=== PATIENT | male | born 1960 | race Caucasian/White ===

== ENCOUNTER 2017-08-31 15:43 | Inpatient (IN) | payer MEDICARE, MEDICAID ==
[~2017-08-31] VITALS: Ht 162.6 cm; Wt 80.3 kg
[2017-08-31] MEDS ORDERED: ABAC1TAB15 PO (16:18)
[2017-08-31] MEDS ORDERED: AMOXICILLIN PO (16:18)
[2017-08-31] MEDS ORDERED: IV NORMAL SALINE 1000 ML BAG IV ONE (19:15)
[2017-08-31] MEDS ORDERED: HYDROMORPHONE 1 MG/1 ML DISP.SYRIN IV ONE (19:15)
[2017-08-31] MEDS ORDERED: ONDANSETRON 4 MG/2 ML VIAL IV ONE (19:15)
[2017-08-31 19:51] LABS: BASOPHILS % (AUTO) 0.9 % (0.0-2.0); EOSINOPHILS # (AUTO) 0.1 K/uL (0.0-0.7); EOSINOPHILS % (AUTO) 2.2 % (0.0-7.0); HEMATOCRIT 46.5 % (36.7-47.1); HEMOGLOBIN 15.5 g/dL (12.5-16.3); LYMPHOCYTES # (AUTO) 0.7 K/uL (20.0-40.0); MEAN CORPUSCULAR HEMOGLOBIN 29.1 uug (23.8-33.4); MEAN CORPUSCULAR HGB CONC 33 g/dL (32.5-36.3); MEAN CORPUSCULAR VOLUME 87.1 fL (73.0-96.2); MONOCYTES # (AUTO) 0.4 K/uL (2.0-10.0); NEUTROPHILS # (AUTO) 3.5 K/uL (1.8-8.9); NEUTROPHILS % (AUTO) 72.9 % (38.5-71.5); PLATELET COUNT (AUTO) 51 K/uL (152-348); RED BLOOD CELL COUNT(AUTO) 5.33 MIL/uL (4.06-5.63); WHITE BLOOD COUNT (AUTO) 4.8 K/uL (3.6-10.2)
[2017-08-31 19:52] LABS: CREATININE 1.5 mg/dL (0.6-1.3); POTASSIUM 4.1 mmol/L (3.5-5.1)
[2017-08-31 20:02] LABS: BILIRUBIN,DIRECT 0.3 mg/dL (0.0-0.2); TOTAL PROTEIN, SERUM 8.3 g/dL (6.4-8.2)
[2017-08-31] MEDS ORDERED: HYDROMORPHONE 2 MG/1 ML DISP.SYRIN ONE (20:03)
[2017-08-31] MEDS ORDERED: ONDANSETRON 4 MG/2 ML VIAL ONE (20:03)
[2017-08-31 20:10] LABS: BAND % (MANUAL) 2 % (0-10); EOSINOPHILS % (MANUAL) 2 % (0-8); LYMPHOCYTES % (MANUAL) 14 % (20-40); MONOCYTES % (MANUAL) 7 % (2-10); NEUTROPHILS % (MANUAL) 75 % (42-75)
--- NOTE | 2017-08-31 22:02 | NUR ---
Pt. admitted to [facility], under care of Jody Roman (TONI) Belongs List completed
--- NOTE | 2017-08-31 22:30 | NUR ---
Received patient from the ER via [facility]. Patient belongings noted, denies pain at this time. Vital signs WNL. Admission assessments completed. paged the doctor for admission orders. Patient currently lying in bed, oriented to the unit. No distress noted, bed in low position with call light within reach.
[2017-08-31 22:34] VITALS: BP 131/74
[2017-08-31] MEDS ORDERED: Z GUARD REMEDY PASTE 57 GM TUBE TOP PRN (23:00)
[2017-08-31] MEDS ORDERED: HYDROCODONE/APAP 5-325MG TABLET PO PRN (23:00)
[2017-08-31] MEDS ORDERED: MAGNESIUM HYDROXIDE 30 ML LIQUID UDC PO PRN (23:00)
[2017-08-31] MEDS ORDERED: MORPHINE SULFATE 2 MG/1 ML DISP.SYRIN IV PRN (23:00)
[2017-08-31] MEDS ORDERED: ZOLPIDEM 5 MG TABLET PO PRN (23:00)
[2017-08-31] MEDS ORDERED: ONDANSETRON 4 MG/2 ML VIAL IV PRN (23:00)
[2017-08-31] MEDS ORDERED: IV NS 1000 ML 1,000 ML IV PRN (23:00)
[2017-08-31] MEDS ORDERED: ACETAMINOPHEN 325 MG TABLET PO PRN (23:00)
[2017-08-31] MEDS: HEPARIN SODIUM,PORCINE 5,000 UNITS/ML VIAL SQ SCH (23:12)
[2017-08-31] MEDS ORDERED: HEPARIN SODIUM,PORCINE 5,000 UNITS/ML VIAL ONE (23:26)
[2017-09-01 04:00] VITALS: BP 110/79
[2017-09-01 08:11] LABS: BASOPHILS % (AUTO) 1.1 % (0.0-2.0); EOSINOPHILS # (AUTO) 0.1 K/uL (0.0-0.7); EOSINOPHILS % (AUTO) 3.4 % (0.0-7.0); HEMATOCRIT 40.1 % (36.7-47.1); HEMOGLOBIN 13.4 g/dL (12.5-16.3); LYMPHOCYTES # (AUTO) 0.8 K/uL (20.0-40.0); LYMPHOCYTES % (AUTO) 21.1 % (20.5-51.5); MEAN CORPUSCULAR HGB CONC 33 g/dL (32.5-36.3); MEAN CORPUSCULAR VOLUME 86.8 fL (73.0-96.2); MONOCYTES # (AUTO) 0.4 K/uL (2.0-10.0); MONOCYTES % (AUTO) 10.6 % (0.0-11.0); NEUTROPHILS # (AUTO) 2.4 K/uL (1.8-8.9); NEUTROPHILS % (AUTO) 63.8 % (38.5-71.5); RED BLOOD CELL COUNT(AUTO) 4.63 MIL/uL (4.06-5.63); WHITE BLOOD COUNT (AUTO) 3.8 K/uL (3.6-10.2)
[2017-09-01 08:19] LABS: PLATELET COUNT (AUTO) 46 K/uL (152-348)
[2017-09-01 08:22] LABS: CREATININE 1.2 mg/dL (0.6-1.3); MAGNESIUM 1.7 mg/dL (1.8-2.4); PHOSPHOROUS 3.3 mg/dL (2.5-4.9); POTASSIUM 4.2 mmol/L (3.5-5.1)
[2017-09-01] MEDS: MORPHINE SULFATE 4 MG/1 ML DISP.SYRIN IV PRN ×3 (08:38→21:13)
[2017-09-01] MEDS: HEPARIN SODIUM,PORCINE 5,000 UNITS/ML VIAL SQ SCH (08:45)
[2017-09-01] MEDS ORDERED: MAGNESIUM SULFATE/D5W 100 ML IV SCH (10:45)
[2017-09-01] MEDS ORDERED: IV D5/ 0.9% NACL 1,000 ML IV PRN (10:45)
[2017-09-01 11:42] LABS: BILIRUBIN,DIRECT 0.2 mg/dL (0.0-0.2); BILIRUBIN,TOTAL 0.7 mg/dL (0.2-1.0); TOTAL PROTEIN, SERUM 6.8 g/dL (6.4-8.2)
[2017-09-01 11:56] LABS: BAND % (MANUAL) 2 % (0-10); BASOPHILS % (MANUAL) 1 % (0-2); EOSINOPHILS % (MANUAL) 3 % (0-8); LYMPHOCYTES % (MANUAL) 20 % (20-40); MONOCYTES % (MANUAL) 10 % (2-10); NEUTROPHILS % (MANUAL) 64 % (42-75)
[2017-09-01 12:02] VITALS: BP 114/75
[2017-09-01 12:38] LABS: THYROID STIMULATING HORMONE 2.009 mIU/mL (0.358-3.740)
[2017-09-01] MEDS: MEROPENEM 1 G in IV NORMAL SALINE 100 ML IV SCH ×2 (13:02→20:43)
[2017-09-01] MEDS: PANTOPRAZOLE SODIUM 40 MG VIAL IV SCH (15:40)
[2017-09-01] MEDS: POLYVINYL ALCOHOL OPHT DROPS 15 ML BOTTLE LEFTEYE SCH ×2 (15:41→17:10)
[2017-09-01 16:06] VITALS: BP 131/87
[2017-09-01 19:00] VITALS: BP 147/91
--- NOTE | 2017-09-01 21:00 | NUR ---
Consent for EGD signed by patient. Signed consent placed in patient's chart.
--- NOTE | 2017-09-02 | NUR ---
Patient kept NPO past midnight for EGD procedure in the morning 09/02/17. Patient verbalized understanding. IVF infusing, no infiltration noted. Will continue to monitor.
[2017-09-02] MEDS: POLYVINYL ALCOHOL OPHT DROPS 15 ML BOTTLE LEFTEYE SCH ×5 (00:09→23:23)
[2017-09-02] MEDS: MEROPENEM 1 G in IV NORMAL SALINE 100 ML IV SCH ×3 (03:36→20:10)
[2017-09-02 04:00] VITALS: BP 112/72
[2017-09-02 04:30] VITALS: BP 118/80
[2017-09-02] MEDS: MORPHINE SULFATE 4 MG/1 ML DISP.SYRIN IV PRN ×4 (05:07→23:26)
--- NOTE | 2017-09-02 05:47 | NUR ---
Pre operative checklist done. Addendum: 09/02/17 at 0653 by SPIKE TATUM RN Add: Pt is in no distress, VS stable, pt is afebrile, no s/s of bleeding.
[2017-09-02 07:09] LABS: BILIRUBIN,TOTAL 0.7 mg/dL (0.2-1.0); CREATININE 1.3 mg/dL (0.6-1.3); PHOSPHOROUS 2.9 mg/dL (2.5-4.9); POTASSIUM 3.7 mmol/L (3.5-5.1); TOTAL PROTEIN, SERUM 6.6 g/dL (6.4-8.2)
[2017-09-02 07:27] LABS: EOSINOPHILS # (AUTO) 0.3 K/uL (0.0-0.7); EOSINOPHILS % (AUTO) 6.2 % (0.0-7.0); HEMATOCRIT 41.3 % (36.7-47.1); HEMOGLOBIN 13.6 g/dL (12.5-16.3); LYMPHOCYTES # (AUTO) 0.9 K/uL (20.0-40.0); LYMPHOCYTES % (AUTO) 21.3 % (20.5-51.5); MEAN CORPUSCULAR HGB CONC 33 g/dL (32.5-36.3); MEAN CORPUSCULAR VOLUME 87.9 fL (73.0-96.2); MONOCYTES # (AUTO) 0.5 K/uL (2.0-10.0); MONOCYTES % (AUTO) 11.6 % (0.0-11.0); NEUTROPHILS # (AUTO) 2.6 K/uL (1.8-8.9); NEUTROPHILS % (AUTO) 59.9 % (38.5-71.5); WHITE BLOOD COUNT (AUTO) 4.3 K/uL (3.6-10.2)
[2017-09-02 07:54] LABS: *BILIRUBIN,URIN NEGATIVE (NEGATIVE); *BLOOD, URINE 2+ (NEGATIVE); *CLARITY,URINE SLIGHTLY CLOUDY (CLEAR); *COLOR,URINE YELLOW (YELLOW); *KETONES,URINE 1+ (NEGATIVE); *PROTEIN,URINE 1+ (NEGATIVE); LEUKOCYTE ESTERASE ,URINE NEGATIVE (NEGATIVE); NITRITE, URINE NEGATIVE (NEGATIVE); PH,URINE 5.5 (5.0-8.0); UGLUCOSE NEGATIVE (NEGATIVE)
[2017-09-02 08:00] LABS: PLATELET COUNT (AUTO) 33 K/uL (152-348)
[2017-09-02 08:08] LABS: BACTERIA,URINE NONE SEEN /HPF (NONE SEEN); MUCUS,URINE FEW /LPF (0-FEW); RBC,URINE 20-50 /HPF (0-3); SQUAMOUS EPITHELIAL CELL,UR FEW /HPF (NONE SEEN); WBC,URINE 50-80 /HPF (0-3)
[2017-09-02] MEDS: PANTOPRAZOLE SODIUM 40 MG VIAL IV SCH ×2 (09:26→20:24)
[2017-09-02 11:11] VITALS: BP 130/55
[2017-09-02 11:30] LABS: BAND % (MANUAL) 1 % (0-10); BASOPHILS % (MANUAL) 1 % (0-2); EOSINOPHILS % (MANUAL) 4 % (0-8); LYMPHOCYTES % (MANUAL) 25 % (20-40); MONOCYTES % (MANUAL) 10 % (2-10); NEUTROPHILS % (MANUAL) 59 % (42-75)
--- NOTE | 2017-09-02 11:45 | NUR ---
pt seen on rounding. pt vitals stable prior to being sent for EGD. pt returned around 1100 vitals assessed. hr 46. other vitals stable. pt states that he had a hard time breathing. o2 applied. pt states that he feels better. pt has new orders for hida scan being done today. pt will be npo. new orders faxed to pharmacy. will continue to monitor.
[2017-09-02] MEDS: FOLIC ACID 1 MG in IV DEXTROSE 5% 50 ML IV SCH (12:00)
[2017-09-02] MEDS: IV LACTATED RINGERS SOLUTION 1,000 ML IV PRN ×2 (14:17→23:21)
[2017-09-02 15:22] VITALS: BP 124/73
[2017-09-02] MEDS ORDERED: IV LACTATED RINGERS SOLUTION 1,000 ML BAG IV ONE (16:23)
[2017-09-02] MEDS ORDERED: LIDOCAINE HCL 1% 20 ML VIAL MC ONE (16:23)
[2017-09-02] MEDS ORDERED: PROPOFOL 200 MG/20 ML BOTTLE IV ONE (16:23)
[2017-09-02] MEDS: SUCRALFATE 1 G/10 ML LIQUID UDC PO SCH ×2 (17:08→23:20)
--- NOTE | 2017-09-02 18:29 | NUR ---
pt stable throughout the day. pt continues to request for breathing treatments and for specific meds. pt advised to walk with caution because of unsteady gait. pt continues to have all belongings including medication bedside. pt continues to be non compliant with applying o2 nc 2l due to decreasing oxygen saturation. will endorse to university lecturer nurse.
[2017-09-02 19:00] VITALS: BP 123/70
--- NOTE | 2017-09-02 19:30 | NUR ---
PT IN ROOM ALERT AWAKE IN NO ACUTE DISTRESS. ABLE TO FOLLOW SIMPLE COMMANDS. NO CURRENT PAIN TO ABDOMINAL AREA. ON CONTINUOUS FLUIDS AT 75ML/HR. NO S/S OF BLEEDING NOTED. CONTINUE TO MONITOR. CALL LIGHT PLACED WITHIN REACH.
[2017-09-03 04:00] VITALS: BP 122/82
[2017-09-03] MEDS: MORPHINE SULFATE 4 MG/1 ML DISP.SYRIN IV PRN ×4 (04:30→20:41)
[2017-09-03] MEDS: MEROPENEM 1 G in IV NORMAL SALINE 100 ML IV SCH ×4 (04:35→20:06)
--- NOTE | 2017-09-03 05:00 | NUR ---
PT IN ROOM ALERT AWAKE WITH PAIN NOTED TO ABDOMEN. PT MAINTAINING NPO STATUS AT THIS TIME. CALL LIGHT WITHIN REACH. NO REACTION TO CURRRENT MERREM ABX IV THERAPY. CONTINUE TO MONITOR.
[2017-09-03] MEDS: SUCRALFATE 1 G/10 ML LIQUID UDC PO SCH ×5 (05:02→23:39)
[2017-09-03] MEDS: POLYVINYL ALCOHOL OPHT DROPS 15 ML BOTTLE LEFTEYE SCH ×4 (05:02→23:38)
[2017-09-03 07:06] LABS: *IMMUNOGLOBULIN G, SERUM 1558 mg/dL (700-1600); IMMUNOGLOBULIN A, SERUM 308 mg/dL (90-386); IMMUNOGLOBULIN M, SERUM 77 mg/dL (20-172)
[2017-09-03 08:06] LABS: BASOPHILS % (AUTO) 0.7 % (0.0-2.0); EOSINOPHILS # (AUTO) 0.2 K/uL (0.0-0.7); EOSINOPHILS % (AUTO) 4.7 % (0.0-7.0); HEMATOCRIT 42.8 % (36.7-47.1); HEMOGLOBIN 14.1 g/dL (12.5-16.3); LYMPHOCYTES # (AUTO) 0.8 K/uL (20.0-40.0); LYMPHOCYTES % (AUTO) 18.1 % (20.5-51.5); MEAN CORPUSCULAR HEMOGLOBIN 28.7 uug (23.8-33.4); MEAN CORPUSCULAR HGB CONC 33 g/dL (32.5-36.3); MEAN CORPUSCULAR VOLUME 86.9 fL (73.0-96.2); MONOCYTES # (AUTO) 0.4 K/uL (2.0-10.0); MONOCYTES % (AUTO) 9.7 % (0.0-11.0); NEUTROPHILS # (AUTO) 2.9 K/uL (1.8-8.9); NEUTROPHILS % (AUTO) 66.8 % (38.5-71.5); RED BLOOD CELL COUNT(AUTO) 4.92 MIL/uL (4.06-5.63); WHITE BLOOD COUNT (AUTO) 4.4 K/uL (3.6-10.2)
--- NOTE | 2017-09-03 08:15 | NUR ---
Order taken from Dr. Aparicio for patient's diet. NPO to regular. Order taken, read back done, carried out. Called dietary to bring breakfast for the patient. Patient stated he has no symptoms of nausea/vomiting.
[2017-09-03 08:30] LABS: CREATININE 1.2 mg/dL (0.6-1.3); MAGNESIUM 1.7 mg/dL (1.8-2.4); PHOSPHOROUS 2.6 mg/dL (2.5-4.9); POTASSIUM 3.8 mmol/L (3.5-5.1); TOTAL PROTEIN, SERUM 6.7 g/dL (6.4-8.2)
[2017-09-03] MEDS: PANTOPRAZOLE SODIUM 40 MG VIAL IV SCH (08:45)
[2017-09-03 09:11] LABS: *BASOS 0 % (Not Estab.); *COMMENTS Note: (.); *EOS 5 % (Not Estab.); *EOS ABSOLUTE 0.2 x10E3/uL (0.0-0.4); *HCT 40.4 % (37.5-51.0); *HGB 13.4 g/dL (13.0-17.7); *LYMPHOCYTES 19 % (Not Estab.); *LYMPHOCYTES ABSOLUTE 0.9 x10E3/uL (0.7-3.1); *MCH 28.8 pg (26.6-33.0); *MCHC 33.2 g/dL (31.5-35.7); *MCV 87 fL (79-97); *MONOCYTES 8 % (Not Estab.); *MONOCYTES ABSOLUTE 0.4 x10E3/uL (0.1-0.9); *NEUTROPHILS 68 % (Not Estab.); *NEUTROPHILS ABSOLUTE 3.1 x10E3/uL (1.4-7.0); *PLT 36 x10E3/uL (150-379); *RBC 4.66 x10E6/uL (4.14-5.80); *RDW 15.4 % (12.3-15.4); *WBC 4.5 x10E3/uL (3.4-10.8)
[2017-09-03 09:38] LABS: PLATELET COUNT (AUTO) 36 K/uL (152-348)
[2017-09-03] MEDS ORDERED: MAGNESIUM SULFATE/D5W 100 ML IV SCH (10:45)
[2017-09-03 11:06] LABS: *HELPER T-LYMPH MARKR(CD4)ABSO 304 /uL (359-1519); *HELPER T-LYNPH MARKER CD4)% 33.8 % (30.8-58.5)
[2017-09-03 11:15] VITALS: BP 151/103
--- NOTE | 2017-09-03 12:00 | NUR ---
received report from MIRTHA Velazco. patient stable upon initial assessment. no s/s acute distress, resting comfortably. no c/o pain. received report that patient did not tolerate regular diet. pending new order.
[2017-09-03 12:43] LABS: BAND % (MANUAL) 1 % (0-10); EOSINOPHILS % (MANUAL) 2 % (0-8); LYMPHOCYTES % (MANUAL) 25 % (20-40); NEUTROPHILS % (MANUAL) 62 % (42-75)
[2017-09-03 12:44] LABS: MONOCYTES % (MANUAL) 10 % (2-10)
[2017-09-03] MEDS: FOLIC ACID 1 MG in IV DEXTROSE 5% 50 ML IV SCH (13:49)
--- NOTE | 2017-09-03 14:00 | NUR ---
patient placed on NPO status due to not tolerated regular diet. per patient plan will be to upgrade to clear liquids tomorrow which he previously tolerated. patient may take small amount of liquid to take PO meds.
[2017-09-03 15:12] VITALS: BP 157/83
[2017-09-03] MEDS: POTASSIUM CHLORIDE 20 MEQ in IV D5/ 0.9% NACL 1,000 ML IV PRN (16:32)
--- NOTE | 2017-09-03 16:49 | NUR ---
IV morphine given per pts requested,.
[2017-09-03] MEDS: PANTOPRAZOLE SODIUM 40 MG TABLET.DR PO SCH (17:35)
--- NOTE | 2017-09-03 18:00 | NUR ---
patient stable, no s/s acute distress, no c/o pain. will monitor
--- NOTE | 2017-09-03 19:45 | NUR ---
RECEIVED PATIENT AWAKE IN BED. A/O X4. VERY PLEASANT WHEN APPROACHED. NO C/O PAIN AT THIS TIME. NO RESP. DISTRESS NOTED. IVF INFUSING WELL. PATIENT IS NPO ORDERED. CALL LIGHT IN REACH. ALL NEEDS ATTENDED. WILL CONTINUE TO MONITOR.
[2017-09-03 20:00] VITALS: BP 155/98
[2017-09-04] MEDS: MEROPENEM 1 G in IV NORMAL SALINE 100 ML IV SCH ×3 (03:30→20:46)
[2017-09-04 04:00] VITALS: BP 151/84
[2017-09-04] MEDS: MORPHINE SULFATE 4 MG/1 ML DISP.SYRIN IV PRN ×3 (04:09→20:46)
[2017-09-04] MEDS: PANTOPRAZOLE SODIUM 40 MG TABLET.DR PO SCH ×2 (06:07→17:57)
[2017-09-04] MEDS: SUCRALFATE 1 G/10 ML LIQUID UDC PO SCH ×4 (06:07→23:21)
[2017-09-04] MEDS: POLYVINYL ALCOHOL OPHT DROPS 15 ML BOTTLE LEFTEYE SCH ×4 (06:08→23:21)
--- NOTE | 2017-09-04 06:59 | NUR ---
PATIENT AWAKE IN BED. DENIES PAIN OR DISCOMFORT. SLEPT WELL. CALL LIGHT IN REACH. ALL NEEDS ATTENDED. WILL CONTINUE TO MONITOR.
[2017-09-04 07:15] LABS: EOSINOPHILS % (AUTO) 6.5 % (0.0-7.0); HEMATOCRIT 41.4 % (36.7-47.1); HEMOGLOBIN 13.9 g/dL (12.5-16.3); LYMPHOCYTES % (AUTO) 22.2 % (20.5-51.5); MEAN CORPUSCULAR HEMOGLOBIN 29.2 uug (23.8-33.4); MEAN CORPUSCULAR HGB CONC 34 g/dL (32.5-36.3); NEUTROPHILS % (AUTO) 58.3 % (38.5-71.5); RED BLOOD CELL COUNT(AUTO) 4.76 MIL/uL (4.06-5.63); WHITE BLOOD COUNT (AUTO) 3.3 K/uL (3.6-10.2)
[2017-09-04 07:16] LABS: EOSINOPHILS # (AUTO) 0.2 K/uL (0.0-0.7); LYMPHOCYTES # (AUTO) 0.7 K/uL (20.0-40.0); MONOCYTES # (AUTO) 0.4 K/uL (2.0-10.0); NEUTROPHILS # (AUTO) 1.9 K/uL (1.8-8.9)
[2017-09-04 07:42] LABS: CREATININE 1.3 mg/dL (0.6-1.3); MAGNESIUM 1.9 mg/dL (1.8-2.4); PHOSPHOROUS 2.6 mg/dL (2.5-4.9); POTASSIUM 4.2 mmol/L (3.5-5.1); TOTAL PROTEIN, SERUM 6.7 g/dL (6.4-8.2)
[2017-09-04 07:44] LABS: PLATELET COUNT (AUTO) 35 K/uL (152-348)
--- NOTE | 2017-09-04 08:43 | NUR ---
Received Patient in bed, Awake, alert and oriented X4 with no Resp. distress noted. Continues on NPO. Call light in with reach. will continue to monitor.
[2017-09-04] MEDS: POTASSIUM CHLORIDE 20 MEQ in IV D5/ 0.9% NACL 1,000 ML IV PRN (09:03)
[2017-09-04] MEDS: FOLIC ACID 1 MG TABLET PO SCH (11:30)
[2017-09-04 11:44] VITALS: BP 143/76
[2017-09-04] MEDS: AMLODIPINE 5 MG TABLET PO SCH (12:14)
[2017-09-04 12:38] LABS: BAND % (MANUAL) 1 % (0-10); BASOPHILS % (MANUAL) 1 % (0-2); EOSINOPHILS % (MANUAL) 4 % (0-8); LYMPHOCYTES % (MANUAL) 34 % (20-40); MONOCYTES % (MANUAL) 5 % (2-10); NEUTROPHILS % (MANUAL) 54 % (42-75)
[2017-09-04 12:43] LABS: REACTIVE LYMPHOCYTES 1 % (0-0)
[2017-09-04 15:50] VITALS: BP 145/77
--- NOTE | 2017-09-04 18:51 | NUR ---
Patient in bed, Awake, alert and oriented X4 with no Resp. distress noted. now on full liquids diet. Call light in with reach.
[2017-09-04 19:00] VITALS: BP 147/84
--- NOTE | 2017-09-04 19:40 | NUR ---
PT RECEIVED IN BED, AWAKE. A/OX4. ABLE TO MAKE NEEDS KNOWN. V/S STABLE. IN NO ACUTE DISTRESS. PT C/O OF ABDOMINAL PAIN 06/14. WILL ADMIN PAIN MEDICATION ORDERED. ON RA, TOLERATING WELL. AFEBRILE. SAFETY MEASURES IMPLEMENTED. CALL LIGHT WITHIN REACH.
[2017-09-05] MEDS: POTASSIUM CHLORIDE 20 MEQ in IV D5/ 0.9% NACL 1,000 ML IV PRN (03:19)
[2017-09-05] MEDS: MEROPENEM 1 G in IV NORMAL SALINE 100 ML IV SCH ×2 (03:20→12:32)
[2017-09-05 04:00] VITALS: BP 120/76
[2017-09-05] MEDS: SUCRALFATE 1 G/10 ML LIQUID UDC PO SCH ×2 (06:07→12:39)
[2017-09-05] MEDS: PANTOPRAZOLE SODIUM 40 MG TABLET.DR PO SCH (06:07)
[2017-09-05] MEDS: POLYVINYL ALCOHOL OPHT DROPS 15 ML BOTTLE LEFTEYE SCH ×2 (06:08→12:41)
--- NOTE | 2017-09-05 06:41 | NUR ---
END OF SHIFT NOTES. PT SLEPT WELL THROUGHOUT SHIFT. IN STABLE CONDITION. IVF INFUSING. PAIN MANAGED. IV ABX INFUSED. ALL NEEDS ATTENDED. SAFETY MAINTAINED. CALL LIGHT WITHIN REACH.
[2017-09-05 07:16] LABS: CREATININE 1.3 mg/dL (0.6-1.3); MAGNESIUM 1.8 mg/dL (1.8-2.4); PHOSPHOROUS 2.6 mg/dL (2.5-4.9); POTASSIUM 4.6 mmol/L (3.5-5.1)
[2017-09-05 07:29] LABS: BASOPHILS # (AUTO) 0.1 K/uL (0.0-8.0); BASOPHILS % (AUTO) 1.3 % (0.0-2.0); EOSINOPHILS # (AUTO) 0.2 K/uL (0.0-0.7); HEMATOCRIT 43.1 % (36.7-47.1); HEMOGLOBIN 14.4 g/dL (12.5-16.3); LYMPHOCYTES % (AUTO) 25.9 % (20.5-51.5); MEAN CORPUSCULAR HEMOGLOBIN 29.1 uug (23.8-33.4); MEAN CORPUSCULAR HGB CONC 34 g/dL (32.5-36.3); MEAN CORPUSCULAR VOLUME 86.8 fL (73.0-96.2); MONOCYTES # (AUTO) 0.5 K/uL (2.0-10.0); MONOCYTES % (AUTO) 13.7 % (0.0-11.0); NEUTROPHILS # (AUTO) 2.1 K/uL (1.8-8.9); NEUTROPHILS % (AUTO) 53.1 % (38.5-71.5); RED BLOOD CELL COUNT(AUTO) 4.96 MIL/uL (4.06-5.63); WHITE BLOOD COUNT (AUTO) 3.9 K/uL (3.6-10.2)
[2017-09-05 07:35] LABS: PLATELET COUNT (AUTO) 48 K/uL (152-348)
--- NOTE | 2017-09-05 08:00 | NUR ---
RECEIVED AWAKE ALERT DENIES PAIN TOLERATING FLUIDS
[2017-09-05 08:14] LABS: BAND % (MANUAL) 1 % (0-10); BASOPHILS % (MANUAL) 1 % (0-2); EOSINOPHILS % (MANUAL) 6 % (0-8); LYMPHOCYTES % (MANUAL) 30 % (20-40); MONOCYTES % (MANUAL) 11 % (2-10); NEUTROPHILS % (MANUAL) 51 % (42-75)
[2017-09-05] MEDS: FOLIC ACID 1 MG TABLET PO SCH (08:58)
[2017-09-05] MEDS: AMLODIPINE 5 MG TABLET PO SCH (08:59)
[2017-09-05 12:15] VITALS: BP 141/83
--- NOTE | 2017-09-05 14:00 | NUR ---
DR MEJIA VISITING
[2017-09-05] MEDS ORDERED: HYDR-3326 PO (15:41)
[2017-09-05] MEDS ORDERED: AMLO5TAB2 PO (15:41)
[2017-09-05] MEDS ORDERED: FAMO-132 PO (15:41)
[2017-09-05 16:13] VITALS: BP 147/91
--- NOTE | 2017-09-05 16:27 | NUR ---
discharge instructions provided by dr noel and reviewed by this recorder with stated understanding
[2017-09-06 08:06] LABS: ALBUMIN 3.1 g/dL (2.9-4.4); ALPHA-1-GLOBULIN 0.2 g/dL (0.0-0.4); ALPHA-2-GLOBULIN 0.7 g/dL (0.4-1.0); BETA GLOBULIN 0.7 g/dL (0.7-1.3); GAMMA GLOBULIN 1.5 g/dL (0.4-1.8); GLOBULIN, TOTAL 3.1 g/dL (2.2-3.9); M-SPIKE Not Observed g/dL (Not Observed)
== END 2017-09-05 16:24 | disposition home health service (06) | DRG 438 ==
LOC: ER 15:44 → MED 21:58
PROVIDERS: ADMIT Internal Medicine; ATTEND Internal Medicine
PROC: 0DB78ZX Excision of Stomach, Pylorus, Via Natural or Artificial Opening Endoscopic, Diagnostic (ICD-10-PCS; 2017-09-02)
PROC: 0DB68ZX Excision of Stomach, Via Natural or Artificial Opening Endoscopic, Diagnostic (ICD-10-PCS; 2017-09-02)
PROC: 0DB48ZX Excision of Esophagogastric Junction, Via Natural or Artificial Opening Endoscopic, Diagnostic (ICD-10-PCS; 2017-09-02)
PROC: 0DB98ZX Excision of Duodenum, Via Natural or Artificial Opening Endoscopic, Diagnostic (ICD-10-PCS; principal; 2017-09-02 09:45)
DX: K85.90 Acute pancreatitis without necrosis or infection, unspecified (principal); N17.0 Acute kidney failure with tubular necrosis; E44.0 Moderate protein-calorie malnutrition; E83.42 Hypomagnesemia; D69.59 Other secondary thrombocytopenia; D68.4 Acquired coagulation factor deficiency; K76.6 Portal hypertension; N39.0 Urinary tract infection, site not specified; E83.51 Hypocalcemia; N28.1 Cyst of kidney, acquired; B94.2 Sequelae of viral hepatitis; K74.60 Unspecified cirrhosis of liver; K29.80 Duodenitis without bleeding; K21.0 Gastro-esophageal reflux disease with esophagitis; K44.9 Diaphragmatic hernia without obstruction or gangrene; K29.50 Unspecified chronic gastritis without bleeding; K80.20 Calculus of gallbladder without cholecystitis without obstruction; H11.32 Conjunctival hemorrhage, left eye; N32.3 Diverticulum of bladder; E66.9 Obesity, unspecified; Z68.30 Body mass index [BMI] 30.0-30.9, adult; E53.8 Deficiency of other specified B group vitamins; Z87.11 Personal history of peptic ulcer disease; R16.1 Splenomegaly, not elsewhere classified; R00.1 Bradycardia, unspecified; I83.90 Asymptomatic varicose veins of unspecified lower extremity; I10 Essential (primary) hypertension; K86.1 Other chronic pancreatitis
CPT/HCPCS: 36415; 70030-TC; 70480; 71010; 78445; 82746; 82784; 83690; 83735; 84100; 84155; 84165; 84443; 85025; 85520; 85730; 86334; 86361; 87086; 87536; 93005; A4217; A4663; A9537; C9113; J1170; J1644; J2185; J2270; J2405; J3475; J3480; J3490; J7030; J7042; J7060; J7120

== ENCOUNTER 2022-10-15 04:37 | Inpatient (IN) | payer MEDICARE, OTHER ==
[~2022-10-15] VITALS: Ht 165.1 cm; Wt 88.1 kg
[~2022-10-15 04:37] MED LIST: ABAC1TAB15 PO; AMLO-212 PO; FAMO-132 PO; HYDR-3326 PO
--- NOTE | 2022-10-15 05:45 | NUR ---
ADMITTED THIS,62 Y.O. MALE FROM [facility] VIA GURNEY, ACCOMPANIED BY MEDICAL TRANSPORT STAFF, ALERT, ORIENTED X 4,NO ACUTE DISTRESS NOTED, SKIN WARM AND DRY, TRANSFERRED TO BED VIA SLIDING BOARD, NEEDS ATTENDED TO.KEEP DRY AND COMFORTABLE. VITAL SIGNS TAKEN 100.1 ORALLY, 91, 20 AND 97%.CONTIENT OF BOWELS, VOIDED FREELY WELL. .DR. JANE NOTIFIED.CALL LITE W/I REACH.
[2022-10-15] MEDS ORDERED: ACETAMINOPHEN 325 MG TABLET PO PRN (06:45)
[2022-10-15] MEDS ORDERED: DEXTROSE 50% 50 ML DISP.SYRIN IV PRN (06:45)
[2022-10-15 07:13] LABS: CREATININE 1.3 mg/dL (0.6-1.3); PHOSPHOROUS 1.9 mg/dL (2.5-4.9)
[2022-10-15] MEDS ORDERED: BLOOD SUGAR DIAGNOSTIC 1 EACH STRIP VI SCH (07:30)
[2022-10-15] MEDS ORDERED: VANCOMYCIN IV 1,250 MG in IV DEXTROSE 5% 250 ML IV ONE (08:00)
[2022-10-15] MEDS: AMLODIPINE 5 MG TABLET PO SCH (08:23)
[2022-10-15] MEDS: FAMOTIDINE 20 MG TABLET PO SCH ×2 (08:23→20:34)
[2022-10-15] MEDS: BLOOD SUGAR DIAGNOSTIC 1 EACH STRIP VI SCH ×4 (08:24→20:34)
[2022-10-15 08:26] LABS: HEMATOCRIT 41.8 % (36.7-47.1); MEAN CORPUSCULAR HEMOGLOBIN 28.5 uug (23.8-33.4); MEAN CORPUSCULAR VOLUME 85.6 fL (73.0-96.2)
[2022-10-15] MEDS: INSULIN REGULAR, HUMAN 300 UNIT/3 ML VIAL SQ PRN ×2 (08:26→11:42)
[2022-10-15 08:28] LABS: PLATELET COUNT (AUTO) 43 K/uL (152-348)
[2022-10-15] MEDS: HYDROCODONE/APAP 5-325MG TABLET PO PRN ×2 (08:39→20:35)
--- NOTE | 2022-10-15 09:40 | NUR ---
Received critical lab value by Khadijah. Platelet count 43. Reported to Dr. Conway and recived order for Thiamine, cyanocobalamin and Folic Acid. Will keep monitoring the pt.
[2022-10-15] MEDS: THIAMINE HCL 100 MG TABLET PO SCH ×2 (09:46→16:11)
[2022-10-15 11:58] VITALS: BP 118/68
[2022-10-15] MEDS ORDERED: SODIUM PHOSPHATE MM 15 MMOL in IV NORMAL SALINE 250 ML IV ONE (12:00)
--- NOTE | 2022-10-15 12:03 | NUR ---
WOUND CARE CONSULT: PT SEEN FOR RT BUTTOCK AND POSTERIOR THIGH REDNESS, TENDERNESS WITH SWELLING AND INDURATION, PRESENT ON ADMISSION. DR KEV QUINN CALLED FOR SURGICAL CONSULT. DISCUSSED SKIN PROTECTION WITH NURSING STAFF. PT IS ABLE TO REPOSITION HIMSELF IN BED AND IS CONTINENT. WILL SEE PRN. IN AGREEMENT WITH PLAN OF CARE.
[2022-10-15 12:11] LABS: *BILIRUBIN,URIN NEGATIVE (NEGATIVE); *BLOOD, URINE 3+ (NEGATIVE); *CLARITY,URINE CLEAR (CLEAR); *COLOR,URINE YELLOW (YELLOW); *KETONES,URINE TRACE (NEGATIVE); LEUKOCYTE ESTERASE ,URINE NEGATIVE (NEGATIVE); NITRITE, URINE NEGATIVE (NEGATIVE)
[2022-10-15 12:16] LABS: UGLUCOSE 1+ (NEGATIVE)
[2022-10-15 14:07] LABS: BACTERIA,URINE MANY /HPF (NONE SEEN); SQUAMOUS EPITHELIAL CELL,UR FEW /HPF (NONE SEEN); WBC,URINE 50-80 /HPF (0-3)
[2022-10-15 15:55] VITALS: BP 130/87
[2022-10-15] MEDS: CYANOCOBALAMIN 1,000 MCG TABLET PO SCH (16:11)
[2022-10-15] MEDS: FOLIC ACID 1 MG TABLET PO SCH (16:11)
[2022-10-15] MEDS: IV NS 1000 ML 1,000 ML IV PRN (16:43)
--- NOTE | 2022-10-15 17:01 | NUR ---
Pt. noted to be stable during the shift. Able to ambulate with assist. No acute distress noted. Compliance with the care given. No c/o pain. Able to make need known. All safety measure applied. No change in condition noted. Will keep monitoring the patient.
[2022-10-15 20:25] VITALS: BP 126/80
[2022-10-15] MEDS: INSULIN REGULAR, HUMAN 300 UNITS/3 ML VIAL SQ PRN (20:35)
[2022-10-15] MEDS ORDERED: PIPERACILLIN/TAZOBACTAM/D5W 100 ML IV ONE (21:36)
[2022-10-15] MEDS: PIPERACILLIN SODIUM/TAZOBACTAM 3.375 G in IV DEXTROSE 5% 50 ML IV SCH (21:50)
[2022-10-15 22:37] LABS: BAND % (MANUAL) 1 % (0-10); LYMPHOCYTES % (MANUAL) 9 % (20-40); MONOCYTES % (MANUAL) 9 % (2-10); NEUTROPHILS % (MANUAL) 81 % (42-75)
[2022-10-16 00:02] LABS: *BILIRUBIN,URIN NEGATIVE (NEGATIVE); *BLOOD, URINE 2+ (NEGATIVE); *CLARITY,URINE CLEAR (CLEAR); *COLOR,URINE YELLOW (YELLOW); *KETONES,URINE TRACE (NEGATIVE); LEUKOCYTE ESTERASE ,URINE NEGATIVE (NEGATIVE); NITRITE, URINE NEGATIVE (NEGATIVE); UGLUCOSE NEGATIVE (NEGATIVE)
[2022-10-16 01:31] LABS: WBC,URINE NONE SEEN /HPF (0-3)
[2022-10-16 01:32] LABS: BACTERIA,URINE FEW /HPF (NONE SEEN); COARSE GRANULAR CASTS,URINE FEW /LPF
[2022-10-16 01:34] LABS: SQUAMOUS EPITHELIAL CELL,UR FEW /HPF (NONE SEEN)
[2022-10-16] MEDS: VANCOMYCIN IV 1,250 MG in IV DEXTROSE 5% 250 ML IV SCH (03:48)
[2022-10-16] MEDS: PIPERACILLIN SODIUM/TAZOBACTAM 3.375 G in IV DEXTROSE 5% 50 ML IV SCH ×4 (05:13→23:55)
[2022-10-16] MEDS: BLOOD SUGAR DIAGNOSTIC 1 EACH STRIP VI SCH ×4 (06:47→20:52)
[2022-10-16] MEDS: HYDROCODONE/APAP 5-325MG TABLET PO PRN ×2 (06:47→20:27)
[2022-10-16 07:41] LABS: HEMATOCRIT 41.5 % (36.7-47.1); MEAN CORPUSCULAR HEMOGLOBIN 28.6 uug (23.8-33.4); MEAN CORPUSCULAR VOLUME 86.6 fL (73.0-96.2)
[2022-10-16 07:52] LABS: CREATININE 1.2 mg/dL (0.6-1.3); MAGNESIUM 2.2 mg/dL (1.8-2.4); PHOSPHOROUS 1.8 mg/dL (2.5-4.9); POTASSIUM 3.7 mmol/L (3.5-5.1)
--- NOTE | 2022-10-16 08:00 | NUR ---
RECEIVED PATIENT IN BED AWAKE ALERT AND ORIENTED DENIES PAIN OR DISCOMFORTS AT THIS TIME REMAIN ON IVF ORDERED WITH NO S/S OF INFILTERATION ON SITE HE IS ALSO ON ATB WITH NO ADVERSE OR ALLERGIC REACTIONS AT THIS TIME.NO S/S OF HYPO/HYPERGLYCEMIC CALL LIGHTS AND PERSONAL BELONGINGS ARE WITHIN EASY REACH WILL CONTINUE TO OBSERVE.IC REACTIONS AT THIS TIME
[2022-10-16 08:14] LABS: PLATELET COUNT (AUTO) 46 K/uL (152-348)
[2022-10-16] MEDS: INSULIN REGULAR, HUMAN 300 UNIT/3 ML VIAL SQ PRN ×3 (08:28→16:29)
[2022-10-16] MEDS: THIAMINE HCL 100 MG TABLET PO SCH ×2 (08:32→16:26)
[2022-10-16] MEDS: FOLIC ACID 1 MG TABLET PO SCH ×2 (08:32→16:27)
[2022-10-16] MEDS: FAMOTIDINE 20 MG TABLET PO SCH ×2 (08:32→20:19)
[2022-10-16] MEDS: AMLODIPINE 5 MG TABLET PO SCH (08:33)
[2022-10-16] MEDS: CYANOCOBALAMIN 1,000 MCG TABLET PO SCH ×2 (08:33→16:26)
[2022-10-16] MEDS ORDERED: AMLODIPINE 5 MG TABLET PO SCH (09:00)
[2022-10-16] MEDS ORDERED: FAMOTIDINE 20 MG TABLET PO SCH (09:00)
[2022-10-16 11:45] VITALS: BP 130/80
[2022-10-16] MEDS ORDERED: POTASSIUM PHOSPHATE MM 15 MMOL in IV NORMAL SALINE 250 ML IV ONE (13:15)
--- NOTE | 2022-10-16 15:15 | NUR ---
PER PHARMACY PATIENTS HIV DRUG IS NON FORMULARY AND THEY WANT THE PATIENT TO BRING THE MEDS FROM HOME SPOKE WITH THE PATIENT AND HE STATED THAT HE LIVES ALONE AND HAS NO ONE THAT CAN BRING THE MEDICATION HERE CALLED AND NOTIFIED PENELOPE THE [facility].
[2022-10-16] MEDS: GLUCERNA SHAKE 237 ML CAN PO SCH (16:28)
[2022-10-16 16:37] VITALS: BP 129/75
[2022-10-16] MEDS ORDERED: NEUTRA PHOS PACKET PO SCH (17:00)
--- NOTE | 2022-10-16 18:00 | NUR ---
K LEVEL IS 3.7 AND PHOS LEVEL IS 1.8 WITH ORDER FOR POTASSIUM PHOSPHATE ORDERED RUNNING IN PROGRESS AT THIS TIME.
[2022-10-16 20:32] VITALS: BP 127/80
[2022-10-16] MEDS: INSULIN REGULAR, HUMAN 300 UNITS/3 ML VIAL SQ PRN (20:56)
[2022-10-17] MEDS: VANCOMYCIN IV 1,250 MG in IV DEXTROSE 5% 250 ML IV SCH ×2 (00:52→20:44)
[2022-10-17 04:51] VITALS: BP 123/65
[2022-10-17] MEDS: IV NS 1000 ML 1,000 ML IV PRN (05:43)
[2022-10-17] MEDS: BLOOD SUGAR DIAGNOSTIC 1 EACH STRIP VI SCH ×4 (06:34→20:44)
[2022-10-17 07:25] LABS: CREATININE 1.1 mg/dL (0.6-1.3); MAGNESIUM 2.3 mg/dL (1.8-2.4); PHOSPHOROUS 2.6 mg/dL (2.5-4.9); POTASSIUM 3.8 mmol/L (3.5-5.1)
[2022-10-17 08:10] LABS: MEAN CORPUSCULAR HEMOGLOBIN 28.5 uug (23.8-33.4); PLATELET COUNT (AUTO) 60 K/uL (152-348)
[2022-10-17] MEDS: PIPERACILLIN SODIUM/TAZOBACTAM 3.375 G in IV DEXTROSE 5% 50 ML IV SCH ×2 (08:22→16:13)
[2022-10-17] MEDS: THIAMINE HCL 100 MG TABLET PO SCH ×2 (08:23→16:14)
[2022-10-17] MEDS: FAMOTIDINE 20 MG TABLET PO SCH ×2 (08:23→20:44)
[2022-10-17] MEDS: GLUCERNA SHAKE 237 ML CAN PO SCH ×3 (08:23→16:35)
[2022-10-17] MEDS: CYANOCOBALAMIN 1,000 MCG TABLET PO SCH ×2 (08:24→16:14)
[2022-10-17] MEDS: FOLIC ACID 1 MG TABLET PO SCH ×2 (08:24→16:14)
[2022-10-17] MEDS: AMLODIPINE 5 MG TABLET PO SCH (08:25)
[2022-10-17 11:36] VITALS: BP 147/69
--- NOTE | 2022-10-17 12:00 | NUR ---
ZIA HERE SEEN PATIENT WITH NEW LAB ORDERS FOR TOMORROW AND NOTED.PATIENT REMAIN ON ANTIBIOTICS ORDERED WITH NO ADVERSE OR ALLERGIC REACTIONS AT THIS TIME MADE COMFORTABLE WILL CONTINUE TO OBSERVE.
[2022-10-17] MEDS: INSULIN REGULAR, HUMAN 300 UNIT/3 ML VIAL SQ PRN (12:04)
[2022-10-17 16:00] VITALS: BP 144/78
--- NOTE | 2022-10-17 16:59 | NUR ---
RESTING IN BED SEEMS UPSET ABOUT HIS LUNCH AND OTHER THINGS STATED HE ORDERED FOOD FROM THE OUTSIDE BECAUSE HE DID NOT WANT SOMEONE TO TAMPER WITH HIS FOOD REASSURED HIM THAT HE IS SAFE AND HIS FOOD IS SAFE BLOOD PRESSURE SYSTOLIC IS 160 PATIENT ENCOURAGED TO RELAX AND TRY SETTLING DOWN WILL RECHECK HIS BLOOD PRESSURE SOON.
--- NOTE | 2022-10-17 18:32 | NUR ---
MOHINI NOW STATED THAT HE ATE ALREADY DENIES DISCOMFORTS NOT IN DISTRESS
[2022-10-17 20:00] VITALS: BP 130/80
--- NOTE | 2022-10-17 20:40 | NUR ---
FINGERSTICK DONE AND B/S 240 GIVEN ISS SEE EMAR .
--- NOTE | 2022-10-17 20:50 | NUR ---
GIVEN PRN NORCO C/O PAIN TO IS RIGHT UPPER THIGH AREA REQUESTED BY PATIENT .
[2022-10-17] MEDS: HYDROCODONE/APAP 5-325MG TABLET PO PRN (20:51)
[2022-10-17] MEDS: INSULIN REGULAR, HUMAN 300 UNITS/3 ML VIAL SQ PRN (20:52)
[2022-10-18] MEDS: PIPERACILLIN SODIUM/TAZOBACTAM 3.375 G in IV DEXTROSE 5% 50 ML IV SCH ×3 (00:45→16:18)
[2022-10-18 04:00] VITALS: BP 123/78
[2022-10-18] MEDS: BLOOD SUGAR DIAGNOSTIC 1 EACH STRIP VI SCH ×4 (06:26→20:13)
[2022-10-18 06:52] LABS: HEMATOCRIT 39.7 % (36.7-47.1); MEAN CORPUSCULAR HEMOGLOBIN 28.8 uug (23.8-33.4); MEAN CORPUSCULAR VOLUME 86.5 fL (73.0-96.2); PLATELET COUNT (AUTO) 72 K/uL (152-348)
[2022-10-18 07:06] LABS: CREATININE 1.2 mg/dL (0.6-1.3); MAGNESIUM 2.2 mg/dL (1.8-2.4); PHOSPHOROUS 3.2 mg/dL (2.5-4.9); POTASSIUM 3.6 mmol/L (3.5-5.1)
--- NOTE | 2022-10-18 07:32 | NUR ---
RECEIVED PATIENT IN BED DOSING ON AND OFF ALERT AND ORIENTED WHEN AWAKE DENIES DISCOMFORTS AT THIS TIME REMAIN ON IVF AND IVATB ORDERED WITH NO S/S OF ADVERSE OR ALLERGIC REACTIONS AT THIS TIME RT LEG/THIGH CELLULITIS STILL EVIDENT BUT GETTING BETTER.CALL LIGHT AND PERSONAL BELONGINGS ARE WITHIN EASY REACH AT THIS TIME WILL CONTINUE TO OBSERVE.
[2022-10-18] MEDS: GLUCERNA SHAKE 237 ML CAN PO SCH ×3 (08:00→16:18)
[2022-10-18] MEDS: THIAMINE HCL 100 MG TABLET PO SCH ×2 (08:23→16:18)
[2022-10-18] MEDS: FOLIC ACID 1 MG TABLET PO SCH ×2 (08:23→16:18)
[2022-10-18] MEDS: CYANOCOBALAMIN 1,000 MCG TABLET PO SCH ×2 (08:23→16:18)
[2022-10-18] MEDS: AMLODIPINE 5 MG TABLET PO SCH (08:23)
[2022-10-18] MEDS: FAMOTIDINE 20 MG TABLET PO SCH ×2 (08:23→20:09)
[2022-10-18] MEDS: INSULIN REGULAR, HUMAN 300 UNIT/3 ML VIAL SQ PRN ×2 (08:30→12:16)
[2022-10-18] MEDS: VANCOMYCIN IV 1,000 MG in IV DEXTROSE 5% 250 ML IV SCH ×2 (09:05→19:38)
[2022-10-18] MEDS: IV NS 1000 ML 1,000 ML IV PRN (09:53)
[2022-10-18 11:36] VITALS: BP 125/78
--- NOTE | 2022-10-18 13:59 | NUR ---
DR DE GUZMAN HERE SEEN PATIENT WITH NO NEW ORDERS AT THIS TIME.
[2022-10-18 16:00] VITALS: BP 145/78
--- NOTE | 2022-10-18 18:14 | NUR ---
RESTING WITH IVF ORDERED REMAIN ON IV ATB ORDERED ITH NO ADVERSE OR ALLERGIC REACTIONS AT THIS TIME WILL CONTINUE TO OBSERVE.
[2022-10-18 20:00] VITALS: BP 153/93
[2022-10-18] MEDS: HYDROCODONE/APAP 5-325MG TABLET PO PRN (20:09)
[2022-10-18] MEDS: INSULIN REGULAR, HUMAN 300 UNITS/3 ML VIAL SQ PRN (20:17)
[2022-10-19] MEDS: PIPERACILLIN SODIUM/TAZOBACTAM 3.375 G in IV DEXTROSE 5% 50 ML IV SCH ×3 (00:32→16:00)
[2022-10-19] MEDS: BLOOD SUGAR DIAGNOSTIC 1 EACH STRIP VI SCH ×2 (06:26→12:04)
[2022-10-19 07:24] LABS: CREATININE 1.2 mg/dL (0.6-1.3); POTASSIUM 3.9 mmol/L (3.5-5.1)
[2022-10-19] MEDS: GLUCERNA SHAKE 237 ML CAN PO SCH ×2 (08:00→12:00)
[2022-10-19] MEDS: THIAMINE HCL 100 MG TABLET PO SCH (09:24)
[2022-10-19] MEDS: FAMOTIDINE 20 MG TABLET PO SCH (09:24)
[2022-10-19] MEDS: VANCOMYCIN IV 1,000 MG in IV DEXTROSE 5% 250 ML IV SCH (09:24)
[2022-10-19] MEDS: CYANOCOBALAMIN 1,000 MCG TABLET PO SCH (09:24)
[2022-10-19] MEDS: AMLODIPINE 5 MG TABLET PO SCH (09:25)
[2022-10-19] MEDS: FOLIC ACID 1 MG TABLET PO SCH (09:28)
[2022-10-19] MEDS: INSULIN REGULAR, HUMAN 300 UNIT/3 ML VIAL SQ PRN (12:06)
[2022-10-19 12:08] VITALS: BP 138/83
[2022-10-19] MEDS ORDERED: POLYMYXIN B TOP (13:22)
[2022-10-19] MEDS ORDERED: DEXT50DI8 IV (13:22)
[2022-10-19] MEDS ORDERED: Blood Sugar Diagnostic VI (13:22)
[2022-10-19] MEDS ORDERED: AMLO-212 PO (13:22)
[2022-10-19] MEDS ORDERED: PIPE3.379 IV (13:22)
[2022-10-19] MEDS ORDERED: NUT.237L36 PO (13:22)
[2022-10-19] MEDS ORDERED: FAMO20TA8 PO (13:22)
[2022-10-19] MEDS ORDERED: CYAN-51 PO (13:22)
[2022-10-19] MEDS ORDERED: ACET325T53 PO (13:22)
[2022-10-19] MEDS ORDERED: FOLI1TAB94 PO (13:22)
[2022-10-19] MEDS ORDERED: INSU100V28 SQ ×2 (13:22)
[2022-10-19] MEDS ORDERED: THIA100T13 PO (13:22)
[2022-10-19] MEDS ORDERED: RXVAN IV (13:22)
[2022-10-19] MEDS ORDERED: BACITRACIN TOP (13:22)
[2022-10-19] MEDS ORDERED: VANC1PLA9 IV (13:22)
[2022-10-19] MEDS ORDERED: HYDR-3972 PO (13:22)
[2022-10-19 13:40] LABS: MEAN CORPUSCULAR HEMOGLOBIN 28.8 uug (23.8-33.4); MEAN CORPUSCULAR VOLUME 86.3 fL (73.0-96.2); PLATELET COUNT (AUTO) 90 K/uL (152-348)
[2022-10-19] MEDS ORDERED: BACITRACIN/POLYMYXIN B OINT 15 GM TUBE TOP SCH (14:00)
--- NOTE | 2022-10-19 14:38 | NUR ---
1434- Patient states he must leave to take care of his rent money, house; and states he is scared of people breaking into his place and stealing his stuff. Dr Conway made aware. Explained to pt risks of leaving against medical advice. PT verbalizes understanding/ pt insisted to go. AMA form signed by provider and pt. IV removed. pt declined transport and states he is able to walk independently
[2022-10-19 15:31] LABS: BAND % (MANUAL) 2 % (0-10); EOSINOPHILS % (MANUAL) 3 % (0-8); LYMPHOCYTES % (MANUAL) 24 % (20-40); MONOCYTES % (MANUAL) 4 % (2-10); NEUTROPHILS % (MANUAL) 67 % (42-75)
== END 2022-10-19 14:37 | disposition home health service (06) | DRG 871 ==
LOC: MEDSURG3 04:37
PROVIDERS: ADMIT Internal Medicine; ATTEND Internal Medicine
DX: A41.9 Sepsis, unspecified organism (principal); N17.0 Acute kidney failure with tubular necrosis; L03.317 Cellulitis of buttock; N39.0 Urinary tract infection, site not specified; I10 Essential (primary) hypertension; K21.9 Gastro-esophageal reflux disease without esophagitis; Z79.899 Other long term (current) drug therapy; Z83.3 Family history of diabetes mellitus; E11.9 Type 2 diabetes mellitus without complications; D69.6 Thrombocytopenia, unspecified; E78.5 Hyperlipidemia, unspecified; Z87.891 Personal history of nicotine dependence
CPT/HCPCS: 36415; 70030-TC; 83605; 83735; 84100; 85025; 87040; A4663; G0378; J1815; J2543; J3370; J3490; J7040; J7050